=== PATIENT | male | born 1965 | race Asian ===

== ENCOUNTER 2019-04-25 18:48 | Emergency (ER) | payer SELFPAY ==
[~2019-04-25] VITALS: Ht 167.6 cm; Wt 50.0 kg
[2019-04-25] MEDS ORDERED: KETOROLAC TROMETHAMINE 30 MG/ML VIAL IM ONE (19:45)
[2019-04-25 21:54] VITALS: BP 116/70
== END 2019-04-25 21:56 | disposition home or self-care (01) ==
LOC: EMS 18:53
DX: S20.212A Contusion of left front wall of thorax, initial encounter (principal); S20.412A Abrasion of left back wall of thorax, initial encounter; S20.411A Abrasion of right back wall of thorax, initial encounter; S80.812A Abrasion, left lower leg, initial encounter; S00.81XA Abrasion of other part of head, initial encounter; F17.210 Nicotine dependence, cigarettes, uncomplicated; Y04.0XXA Assault by unarmed brawl or fight, initial encounter; Y93.89 Activity, other specified; Y92.89 Other specified places as the place of occurrence of the external cause; Y99.8 Other external cause status
CPT/HCPCS: 71101; 93005; 96372; 99283; J1885